=== PATIENT | male | born 1990 | race Caucasian/White ===

== ENCOUNTER 2024-05-20 22:41 | Emergency (ER) | payer BC ==
[2024-05-20] MEDS: Gabapentin 300 MG Cap PO ONE (23:12)
[2024-05-20] MEDS: Orphenadrine 60 MG/2 ML Inj IM ONE (23:12)
[2024-05-21] MEDS: Ketorolac 30 MG/ML SDV IM ONE (00:07)
[2024-05-21] MEDS: HYDROmorphone 1 MG/ML Syringe IM ONE ×2 (01:34→03:16)
== END 2024-05-21 06:00 ==
LOC: DL.ED 22:41
DX: M51.26 Other intervertebral disc displacement, lumbar region (principal); M54.41 Lumbago with sciatica, right side
CPT/HCPCS: 72131; 96372; 99285; 99285-25; A9270-GY; J1170; J1885; J2360